=== PATIENT | male | born 1995 | race Caucasian/White ===

== ENCOUNTER 2019-09-21 03:02 | Emergency (ER) | payer MEDICAID ==
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
== END 2019-09-21 03:30 | disposition home or self-care (01) ==
LOC: VM.ED 03:02
DX: S20.221A Contusion of right back wall of thorax, initial encounter (principal); Y04.0XXA Assault by unarmed brawl or fight, initial encounter
CPT/HCPCS: 99283; 99283-GF